=== PATIENT | female | born 1985 | race Caucasian/White ===

== ENCOUNTER 2024-02-23 08:00 | Outpatient (CLI) | payer OTHER ==
[2024-02-23 20:55] LABS: CHLAMYDIA TRACHOMATIS DNA NEGATIVE (NEGATIVE); NEISSERIA GONORRHOEAE DNA NEGATIVE (NEGATIVE); TRICHOMONAS VAGINALIS DNA NEGATIVE (NEGATIVE)
== END 2024-02-23 23:59 | disposition home or self-care (01) ==
LOC: LAB.WC 08:00
PROVIDERS: ATTEND Nurse Practitioner
DX: Z11.3 Encounter for screening for infections with a predominantly sexual mode of transmission (principal)
CPT/HCPCS: 87491; 87591; 87661

== ENCOUNTER 2024-03-14 10:28 | Emergency (ER) | payer OTHER ==
[2024-03-14 10:51] VITALS: BP 144/88; O2SAT 99
--- NOTE | 2024-03-14 12:19 | ED Physician Documentation ---
History of Present Illness - Stated complaint Stated Complaint: ANXIETY,MHE - Chief complaint Chief Complaint: General - Additonal information Additional information: Patient is a 38-year-old female presenting to the emergency department with the symptoms of anxiety after recently being discharged from intermediate. Patient requesting bruising from recent intermediate incident to be documented here in emergency department. She notes bruising to right mid arm and left hip.She notes she has PTSD and being in intermediate triggered her PTSD. She was released 2 days ago and comes with her father. Patient has no place to live. PD PAST MEDICAL HISTORY - Past Medical History Past Medical History: Yes Cardiovascular: None Respiratory: None Neuro: None Endocrine/Autoimmune: None GI: None HEENT: None Psych: Anxiety, Panic attacks, Post traumatic stress disorder, Other Derm: None - Past Surgical History Past Surgical History: No - Present Medications Home Medications: Ambulatory Orders Medication Instructions Recorded Confirmed No Known Home Medications 01/02/16 12/06/23 No Known Home Medications 03/14/24 03/14/24 - Allergies Allergies/Adverse Reactions: Allergies Allergy/AdvReac Type Severity Reaction Status Date / Time No Known Drug Allergies Allergy Verified 03/14/24 11:16 - Social History Does the pt smoke?: Yes Smoking Status: Current every day smoker Does the pt drink ETOH?: No Does the pt have substance abuse?: No - Immunizations Immunizations are current?: No - POLST Patient has POLST: No PD ED PE NORMAL - Vitals Vital signs reviewed: Yes - General General: Alert and oriented X 3 - HEENT HEENT: Atraumatic - Neck Neck: Supple, no meningeal sign, C-Spine cleared by NEXUS criteria - Cardiac Cardiac: RRR, No murmur, No gallop, No rub - Respiratory Respiratory: No respiratory distress, Clear bilaterally - Abdomen Abdomen: Normal bowel sounds, Soft, Non tender, Non distended - Female Female : Deferred - Rectal Rectal: Deferred - Back Back: No CVA TTP, No spinal TTP - Derm Derm: Normal color, No rash, Other (Old bruising noted to right upper extremity and left hip no significant swelling redness or warmth to the region.) - Extremities Extremities: No deformity, No tenderness to palpate (No significant tenderness to palpation over bruising as it appears old the full range of motion of all 4 extremities patient able to ambulate and walk without difficulty.) - Neuro Neuro: Alert and oriented X 3 Eye Opening: Spontaneous Motor: Obeys Commands Verbal: Oriented GCS Score: 15 Results - Vitals Vitals: Vital Signs - 24 hr 03/14/24 10:45 Temperature 36.7 C Heart Rate 113 H Respiratory 20 Rate Blood Pressure 144/88 H O2 Saturation 99 Oxygen O2 Source Room air PD Medical Decision Making - ED course Complexity details: reviewed old records, reviewed results ED course: Patient is a 38-year-old female presents to the emergency department after getting out of intermediate 2 days ago. She comes in with anxiety and concerns as her PTSD was worsened while she was in intermediate. Patient requesting images be obtained of bruising on her right upper arm and left hip. She denies any pain bruising appears old on examination. No significant swelling patient moving all 4 extremities without difficulty. No other signs of bruising. Patient denies any suicidal or homicidal ideation here in emergency department. Discussed with patient if she would like to talk to social work and she is agreeable at this time as she is homelessness. Patient discussed with social work she continues to deny any SI or HI. Patient would like to be discharged home she is in the care of her father who she can stay with and he is present here in the emergency department. Patient was given resources by social work for outpatient resources. She denies wanting inpatient treatment for anxiety and she would not like any medications as she has been on them before and she does not feel it helps her symptoms. On reevaluation patient does not appear as anxious she appears more calm and is agreeable with the plan. Patient instructed to return with any new or worsening symptoms and father is agreeable with this as well. Departure - Departure Disposition: 01 Home, Self Care Clinical Impression: Anxiety, Homelessness Condition: Good Forms: PCP List
== END 2024-03-14 13:25 | disposition home or self-care (01) ==
LOC: ED 10:28
DX: F41.9 Anxiety disorder, unspecified (principal); S40.021A Contusion of right upper arm, initial encounter; S70.02XA Contusion of left hip, initial encounter; X58.XXXA Exposure to other specified factors, initial encounter; Y92.149 Unspecified place in prison as the place of occurrence of the external cause; F17.200 Nicotine dependence, unspecified, uncomplicated; Z59.00 Homelessness unspecified
CPT/HCPCS: 99283

== ENCOUNTER 2024-03-30 17:51 | Emergency (ER) | payer OTHER ==
--- NOTE | 2024-03-30 18:04 | ED Physician Documentation ---
PD HPI MHE - Stated complaint Stated Complaint: MHE/AMS/RAFAEL - History obtained from History obtained from: Patient, EMS - Additional information Additional information: 39-year-old woman who was sent by the DCR to [facility] a few months ago for psychosis. Today she was jumping in the road and running into traffic. When confronted she became belligerent and agitated. She admits to cannabis use and to me she is a rambling agitated and aggressive historian, demanding. She admits to cannabis use but no other intoxicants. She says she wants a rape kit because of serial right by her , but she admits there is been no recent contact with him. PD PAST MEDICAL HISTORY - Past Medical History Cardiovascular: None Respiratory: None Neuro: None Endocrine/Autoimmune: None GI: None HEENT: None Psych: Anxiety, Panic attacks, Post traumatic stress disorder, Other Derm: None - Past Surgical History Past Surgical History: No - Present Medications Home Medications: Ambulatory Orders Medication Instructions Recorded Confirmed No Known Home Medications 01/02/16 12/06/23 No Known Home Medications 03/14/24 03/14/24 - Allergies Allergies/Adverse Reactions: Allergies Allergy/AdvReac Type Severity Reaction Status Date / Time No Known Drug Allergies Allergy Verified 03/14/24 11:16 - Social History Does the pt smoke?: Yes Smoking Status: Current every day smoker Does the pt drink ETOH?: No Does the pt have substance abuse?: No - Immunizations Immunizations are current?: No - POLST Patient has POLST: No PD ED PE NORMAL - Vitals Vital signs reviewed: Yes - General General: Other (She is gesturing as though she wants to hit me, agitated psychotic speech, flight of ideas and tangential.) - HEENT HEENT: PERRL, EOMI - Neck Neck: Supple, no meningeal sign, No bony TTP - Cardiac Cardiac: RRR, No murmur - Respiratory Respiratory: No respiratory distress, Clear bilaterally - Abdomen Abdomen: Non tender - Extremities Extremities: No deformity, No tenderness to palpate, Normal ROM s pain - Neuro Eye Opening: Spontaneous Results - Vitals Vitals: Vital Signs - 24 hr 03/30/24 18:22 Temperature 37.5 C Heart Rate 124 H Respiratory 20 Rate Blood Pressure 131/101 H O2 Saturation 97 Oxygen O2 Source Room air - Labs Labs: Laboratory Tests 03/30/24 03/30/24 18:35 18:35 WBC 15.1 H RBC 4.35 Hgb 13.7 Hct 39.8 MCV 91.5 MCH 31.5 H MCHC 34.4 RDW 11.8 L Plt Count 318 MPV 8.5 Neut # (Auto) 12.5 H Lymph # (Auto) 1.5 Obion # (Auto) 0.9 Eos # (Auto) 0.1 Baso # (Auto) 0.1 Absolute Nucleated RBC 0.00 Nucleated RBC % 0.0 Sodium 138 Potassium 3.2 L Chloride 104 Carbon Dioxide 26 Anion Gap 8.0 BUN 10 Creatinine 0.8 Estimated GFR (MDRD) 81 L Glucose 101 Calcium 9.3 Magnesium 1.5 L Total Bilirubin 0.6 AST 21 ALT 15 Alkaline Phosphatase 70 Total Creatine Kinase 415 H Total Protein 6.8 Albumin 4.5 Globulin 2.3 Albumin/Globulin Ratio 2.0 Lipase 13 Salicylates < 1.5 Acetaminophen < 0.1 Ethyl Alcohol < 10.0 PD Medical Decision Making - ED course ED course: 39 yo F BIBA on [facility]EL for psychosis/agressive/dangerous/spitting. In restraints on arrival continued and needed chem restraint. Care to Dr Morin with pending medicla clearance and call for DCR eval. Departure - Departure Clinical Impression: Cannabis abuse with intoxication Psychosis Qualifiers: Psychosis type: unspecified psychosis type Qualified Code(s): F29 - Unspecified psychosis not due to a substance or known physiological condition Condition: Stable
[2024-03-30] MEDS: OLANZapine 10 MG VIAL IM ONE (18:22)
[2024-03-30] MEDS: KETAMINE 500 MG/10 ML VIAL IM STA (18:22)
[2024-03-30 18:39] LABS: BASOPHILS # (AUTO) 0.1 10^3/uL (0.0-0.1); BASOPHILS % (AUTO) 0.4 %; EOSINOPHILS # (AUTO) 0.1 10^3/uL (0.0-0.7); EOSINOPHILS % (AUTO) 0.7 %; HCT - HEMATOCRIT 39.8 % (37.0-47.0); HGB - HEMOGLOBIN 13.7 g/dL (12.0-16.0); LYMPHOCYTES # (AUTO) 1.5 10^3/uL (1.5-3.5); LYMPHOCYTES % (AUTO) 9.7 %; MEAN CORPUSCULAR HEMOGLOBIN 31.5 pg (27.0-31.0); MEAN CORPUSCULAR HGB CONC 34.4 g/dL (32.0-36.0); MEAN CORPUSCULAR VOLUME 91.5 fL (81.0-99.0); MEAN PLATELET VOLUME 8.5 fL (7.9-10.8); MONOCYTES # (AUTO) 0.9 10^3/uL (0.0-1.0); MONOCYTES % (AUTO) 5.9 %; NEUTROPHILS # (AUTO) 12.5 10^3/uL (1.5-6.6); PLT - PLATELET COUNT 318 10^3/uL (130-450); RED BLOOD COUNT 4.35 10^6/uL (4.20-5.40); RED CELL DISTRIBUTION WIDTH 11.8 % (12.0-15.0); WHITE BLOOD COUNT 15.1 x10^3/uL (4.8-10.8)
--- NOTE | 2024-03-30 18:43 | ED Physician Documentation ---
Restraint Vcxi-re-[id number] - Immediate Situation Face to Face Evaluation Date: 03/30/24 Face to Face Evaluation Time: 18:41 Restraint Classification: Violent, Physical - Locked Restraint - Patient's Reaction & Behaviors Safety: Physically safe Verbal: Screaming/Yelling Harm: Potential harm to others Physical: Aggressive behavior, Kicking - Behavioral Condition Attitude: Indifferent Behavior: Agitated Orientation: Person, Place, Time Mood: Content, Angry - Evaluation Pertinent History/Illicit Drugs/Medications/Results: This face to face is for both violent and chemical restraints ordered at same time. She admits to excessive cannabis use and has had psychosis r/t to same in the past. Today she is very psychotic, aggressive and not readily redirectable. Here on RAFAEL. - Plan Need to Initiate/Renew Violent or Chemical Restraint: Will reval over time and plan for DCR when medically stable.
[2024-03-30 18:52] LABS: MAGNESIUM 1.5 mg/dL (1.7-2.3)
[2024-03-30 18:59] LABS: ALBUMIN 4.5 g/dL (3.2-5.5); ALKALINE PHOSPHATASE 70 IU/L (42-121); ALT ALANINE AMINOTRANSFERASE 15 IU/L (10-60); AST ASPARTATE AMINOTRANSFERASE 21 IU/L (10-42); BILIRUBIN,TOTAL 0.6 mg/dL (0.2-1.0); BUN - BLOOD UREA NITROGEN 10 mg/dL (6-20); CALCIUM 9.3 mg/dL (8.5-10.3); CARBON DIOXIDE - CO2 26 mmol/L (21-32); CHLORIDE 104 mmol/L (101-111); CK- CREATINE KINASE 415 IU/L (30-223); CREATININE 0.8 mg/dL (0.6-1.3); ETOH - ETHANOL < 10.0 mg/dL; GFR - MDRD 81 (>89); GLUCOSE 101 mg/dL (74-104); LIPASE 13 U/L (11-82); POTASSIUM 3.2 mmol/L (3.5-4.5); SODIUM 138 mmol/L (135-145); TOTAL PROTEIN 6.8 g/dL (6.4-8.9)
[2024-03-30 19:00] LABS: SALICYLATE < 1.5 mg/dL
[2024-03-30 19:01] LABS: ACETAMINOPHEN < 0.1 ug/mL
[2024-03-30 19:09] LABS: THYROID STIMULATING HORMONE 1.21 uIU/mL (0.34-5.60)
[2024-03-30 19:56] LABS: BILIRUBIN,URINE NEGATIVE (NEGATIVE); GLUCOSE, URINE (UA) NEGATIVE (NEGATIVE); KETONES,URINE (UA) NEGATIVE (NEGATIVE); LEUKOCYTE ESTERASE, URINE NEGATIVE (NEGATIVE); NITRITE,URINE NEGATIVE (NEGATIVE); OCCULT BLOOD,URINE NEGATIVE (NEGATIVE); PROTEIN,URINE NEGATIVE (NEGATIVE); UROBILINOGEN,URINE 0.2 (NORMAL) E.U./dL (NORMAL)
[2024-03-30 19:59] LABS: CLARITY,URINE CLEAR (CLEAR); HCG UR QUAL NEGATIVE
[2024-03-30 20:12] LABS: AMPHETAMINE SCREEN,URINE NEGATIVE (NEGATIVE); BARBITURATE SCREEN,UR NEGATIVE (NEGATIVE); BENZODIAZEPINES SCREEN, URINE NEGATIVE (NEGATIVE); BUPRENORPHINE SCREEN, URINE NEGATIVE (NEGATIVE); COCAINE SCREEN URINE NEGATIVE (NEGATIVE); METHADONE SCREEN, URINE NEGATIVE (NEGATIVE); METHAMPHETAMINES SCREEN, URINE NEGATIVE (NEGATIVE); OPIATE SCREEN, URINE NEGATIVE (NEGATIVE); OXYCODONE SCREEN, URINE NEGATIVE (NEGATIVE); THC CANNABINOID SCREEN, URINE POSITIVE (NEGATIVE); TRICYCLIC ANTIDEPRESSANT,URINE NEGATIVE (NEGATIVE)
--- NOTE | 2024-03-30 21:01 | ED Physician Documentation ---
ED Addendum - Addendum Addendum: 03/30/24 21:00 Patient was signed out to me by Dr. Londono awaiting medical clearance. Patient is medically clear for psychiatric care. She was able to be removed from restraints, but is still having elements of paranoia and psychosis. Therefore the DCR was contacted. 03/30/24 22:17 At the time of signout, the patient is still out of restraints. DCR is coming to evaluate the patient. Patient signed out to Dr. Goldman. Departure - Departure Clinical Impression: Cannabis abuse with intoxication Psychosis Qualifiers: Psychosis type: unspecified psychosis type Qualified Code(s): F29 - Unspecified psychosis not due to a substance or known physiological condition Condition: Stable Forms: PCP List
[2024-03-31] MEDS: OLANZapine 10 MG VIAL IM STA ×2 (00:32→16:49)
[2024-03-31] MEDS: KETAMINE 500 MG/10 ML VIAL IM STA ×2 (01:15→17:32)
--- NOTE | 2024-03-31 01:33 | ED Physician Documentation ---
Restraint Qutm-rd-Aksr - Immediate Situation Face to Face Evaluation Date: 03/31/24 Face to Face Evaluation Time: 01:31 Restraint Classification: Violent, Physical - Locked Restraint - Patient's Reaction & Behaviors Safety: Physically unsafe, Non-compliant Verbal: Demanding, Screaming/Yelling Harm: Potential harm to others Physical: Aggressive behavior, Fighting restraints - Behavioral Condition Attitude: Indifferent Behavior: Belligerent, Agitated Orientation: Person, Place, Time Mood: Angry - Evaluation Pertinent History/Illicit Drugs/Medications/Results: This face to face is for both violent and chemical restraints ordered at same time. She admits to excessive cannabis use and has had psychosis r/t to same in the past. Today she is very psychotic, aggressive and not readily redirectable. Here on RAFAEL. - Plan Need to Initiate/Renew Violent or Chemical Restraint: calm, cooperative
--- NOTE | 2024-03-31 01:56 | ED Physician Documentation ---
ED Addendum - Addendum Addendum: 03/31/24 01:47 I received signout/turnover of care on this patient from Dr. Morin who, in turn, received signout from Dr. Londono; please see their notes for further details (Dr. Londono's note for complete H+P). In brief, the patient was brought in for bizarre behavior including running in and out of traffic. Upon arrival, the patient was agitated and belligerent to the point of requiring both physical and chemical restraints. MHE-oriented testing was undertaken and patient was medically cleared for consultation with DCR. DCR then came to the emergency department evaluated patient in-person. DCR (Cirera) then discussed her evaluation and recommendations with me; the plan is to hold patient in ED pending bed availability at appropriate facility (which [facility] will look into). At this time, patient is being detained per my discussion with [facility]. At approximately 11:50 p.m. (03/30), the patient quite suddenly began yelling and screaming loudly enough to be heard throughout the entire emergency department. I was informed by ED RN at that she had urinated on the bed and the ED RN was simply gathering up the bed sheets to put them in the dirty utility area and was then going to place new/clean sheets on the bed. For no apparent reason, the patient became irate at this. Despite multiple attempts by several different ED RNs as well as myself to calm the patient and explained to her that she needs to stop screaming, and our attempts to engage the patient in some sort of meaningful and productive discussion, patient was continuously yelling and screaming at all staff, cursing and demanding to be discharged and to be allowed to go outside to smoke. This behavior continued for at least 20 minutes despite our attempts to de-escalate situation, and thus patient is put back in physical restraints and given IM Zyprexa followed by IM ketamine. Eventually these took e ffect and she stopped screaming. 03/31/24 08:07 Patient slept uneventfully for the remainder of my shift and care of patient is turned over to the oncoming ED physician (Dr. Whitlock) as DCR continues to pursue (inpatient bed at appropriate facility.
[2024-03-31] MEDS: POTASSIUM BICARB 25 MEQ TABLET PO ONE (08:11)
[2024-03-31] MEDS: OLANZapine ODT 5 MG TABLET TL STA ×2 (08:11→15:39)
--- NOTE | 2024-03-31 15:30 | ED Physician Documentation ---
ED Addendum - Addendum Addendum: 03/31/24 15:28 The patient became more loud and verbal angry and anxious but was not making any physical violence and not trying to escape. She was expressing everything in a yelling voice. I offered medication to help with relaxing her anxiety. She states she also needed a cigarette and I offered a nicotine patch. I did place these orders and we can offer them to her though she said she is going to decline. She went to the bathroom and back and back to her room without needing redirection. She is very loud at this point but not yet having grounds I feel for involuntary medication. Again I will offer some oral medication. We did hear from the DCR Xin who said that they were not going to resend the decision for detainment. At the time the patient had been more calm but with her behavior now ramped up again I would certainly wholeheartedly agree. 03/31/24 17:03 This morning after change of shift the patient basically slept for the morning up through lunchtime and was just becoming more agitated subsequently.
[2024-03-31] MEDS: NICOTINE 14 MG PATCH TOP STA (15:39)
[2024-03-31] MEDS: OLANZapine 10 MG VIAL IM ONE (17:33)
--- NOTE | 2024-03-31 17:36 | ED Physician Documentation ---
Restraint Hfdt-ax-Dmwu - Immediate Situation Face to Face Evaluation Date: 03/31/24 Face to Face Evaluation Time: 17:35 Restraint Classification: Violent, Physical Hold, w/ Chemical (This cgnd-cn-[id number] service concurrently for both violent and physical restraints applied simultaneously at approximately 1732.) - Patient's Reaction & Behaviors Safety: Non-compliant Physical: Aggressive behavior, Throwing objects, Beating on the door/wall Other: Resting quietly - Behavioral Condition Attitude: Indifferent Behavior: Withdrawn Orientation: Non-responsive Mood: Labile - Evaluation Pertinent History/Illicit Drugs/Medications/Results: This face to face is for both violent and chemical restraints ordered at same time. She admits to excessive cannabis use and has had psychosis r/t to same in the past. Today she is very psychotic, aggressive and not readily redirectable. Here on [facility].
--- NOTE | 2024-03-31 17:47 | ED Physician Documentation ---
ED Addendum - Addendum Addendum: 03/31/24 17:47 She was excepted to [facility] at this time [facility] by the DCR. Cobras are completed and she is stable for transport. 03/31/24 20:03 Note made that I was looking at the [id number]-rm-fkix's, and the EMR was bringing forward incorrect information regarding "the duee-li-ibye being for both chemical and violent restraints." The last [id number]-pl-icdv at 1910 today was only for chemical restraints. The honb-ft-knxk at 1735 today was for both violent and chemical restraints.
[2024-03-31] MEDS: HALOPERIDOL 5 MG/ML VIAL IM STA (19:04)
--- NOTE | 2024-03-31 19:11 | ED Physician Documentation ---
Restraint Yfzs-lh-Uawu - Immediate Situation Face to Face Evaluation Date: 03/31/24 Face to Face Evaluation Time: 19:10 Restraint Classification: Violent, Physical Hold, w/ Chemical - Patient's Reaction & Behaviors Safety: Non-compliant Verbal: Screaming/Yelling, Swearing Harm: Verbalizes intent to harm Physical: Aggressive behavior, Fighting restraints - Behavioral Condition Attitude: Indifferent Behavior: Belligerent, Agitated Orientation: Person, Place Mood: Angry, Anxious - Evaluation Pertinent History/Illicit Drugs/Medications/Results: This face to face is for both violent and chemical restraints ordered at same time. She admits to excessive cannabis use and has had psychosis r/t to same in the past. Today she is very psychotic, aggressive and not readily redirectable. Here on [facility]FA[facility].
[2024-03-31 21:54] VITALS: BP 117/87; O2SAT 98
== END 2024-03-31 21:45 ==
LOC: EDUNIT# → ED 17:51
DX: F12.129 Cannabis abuse with intoxication, unspecified (principal); F29 Unspecified psychosis not due to a substance or known physiological condition; F41.9 Anxiety disorder, unspecified; F17.200 Nicotine dependence, unspecified, uncomplicated; Z78.1 Physical restraint status
CPT/HCPCS: 36415; 80053; 80143; 80179; 80306; 81003; 81025; 82077; 82550; 83690; 83735; 84132; 84443; 85025; 87635; 96372; 99284; 99285; A9270; 81001; 87086